=== PATIENT | female | born 1955 | race Caucasian/White ===

== ENCOUNTER → 2020-12-12 | Outpatient (CLI) | payer MEDICARE, OTHER ==
[~2020-12-12] MED LIST: CATHETER FLUSH 10 ML SYR IV PRN; HOLD METFORMIN - RECEIVED CONTRAST 20 ML VIAL IV SCH; IOHEXOL 350 MG/ML 100 ML (OMNIPAQUE 350) VIAL IV ONE; LISI10TA2 PO; NS 100 ML (IVPB) BAG IV ONE
[2020-12-12 10:49] LABS: CREATININE SERUM 0.99 MG/DL (0.60-1.30)
--- NOTE | 2020-12-12 11:41 | Diagnostic Imaging Report ---
EXAMINATION: CT Abdomen Pelvis with and without intravenous contrast. TECHNIQUE: Precontrast acquisitions were acquired through the abdomen and pelvis. Multiple contiguous axial images were obtained through the abdomen and pelvis after the administration of intravenous contrast. All CT scans use one or more of the following dose optimizing techniques: automated exposure control, MA and/or KvP adjustment based on a patient size and exam type, or iterative reconstruction. 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 FINDINGS: Limited views of the lower thorax show mild atelectasis. There is a 2.3 x 1.8 cm hypoattenuating lesion in segment IVb of the liver. There is no biliary ductal dilation. Gallbladder is normal. Pancreas is normal. Spleen is normal. Adrenal glands are normal. Simple cysts are seen in the left kidney. No suspicious renal lesions. There is no hydronephrosis. Urinary bladder is normal. There is endometrial thickening measuring up to 32 mm. Visualized bowel is normal in caliber without obstruction or inflammation. No free fluid or air. There is an 13 mm left inguinal lymph node. Aorta is normal in caliber without aneurysm. There are no suspicious osseus lesions. IMPRESSION: 1. Marked thickening of the endometrium measuring 13 mm concerning for an endometrial neoplasm. 2. Indeterminate liver lesion concerning for metastatic disease. Dictated by: Dictated on workstation # [id number]
== END ==
LOC: RAD 10:12
PROVIDERS: ATTEND Obstetrics & Gynecology
DX: Z01.89 Encounter for other specified special examinations (principal); D39.8 Neoplasm of uncertain behavior of other specified female genital organs
CPT/HCPCS: 36415; 74178; 82565; 84520

== ENCOUNTER → 2020-12-20 | Outpatient (CLI) | payer MEDICARE, OTHER ==
[~2020-12-20] MED LIST changes: -CATHETER FLUSH 10 ML SYR IV PRN; -HOLD METFORMIN - RECEIVED CONTRAST 20 ML VIAL IV SCH; -IOHEXOL 350 MG/ML 100 ML (OMNIPAQUE 350) VIAL IV ONE; -NS 100 ML (IVPB) BAG IV ONE
--- NOTE | 2020-12-20 16:15 | Diagnostic Imaging Report ---
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 TECHNIQUE: Serum blood glucose level at the time of injection is 150 mg/dL. Patient was administered 14.3 mCi F-18 FDG intravenously in the left hand and PET imaging was performed from the top of the skull through mid thighs. Noncontrast CT was also performed for attenuation correction and anatomic correlation. COMPARISON: No prior PET/CT studies available for comparison. Comparison is made with conventional CT abdomen and pelvis study from 12/12/2020. FINDINGS: There is symmetric activity throughout the brain. Soft tissues of the neck are unremarkable. No definite mediastinal or hilar hypermetabolism is identified. No pulmonary parenchymal hypermetabolism is identified. No definite hypermetabolic lesion within the liver is identified to correlate with the abnormality noted on CT, however, liver evaluation with PET can be limiting. There is physiologic activity throughout the liver as well as the remainder of the GI tract and tract. No suspicious hypermetabolic focus in the pelvis is identified apart from some increased activity involving a left inguinal lymph node that measures 23 mm x 16 mm. SUV max is approximately 4. No other hypermetabolic lymph nodes in the pelvis are identified. No suspicious hypermetabolism in the uterus or cervix is identified. IMPRESSION: Unremarkable PET/CT study apart from hypermetabolic lymph node in the left groin. Liver is difficult to evaluate with PET and further evaluation with a liver MRI would be useful to further evaluate lesion within the liver on recent CT study. Dictated by: Dictated on workstation # [id number]
== END ==
LOC: RAD 09:00
PROVIDERS: ATTEND Obstetrics & Gynecology
DX: C76.3 Malignant neoplasm of pelvis (principal); C53.9 Malignant neoplasm of cervix uteri, unspecified
CPT/HCPCS: 78815; A9552

== ENCOUNTER → 2021-01-10 | Outpatient (CLI) | payer MEDICARE, OTHER ==
[~2021-01-10] MED LIST changes: +GADOBUTROL 10 MMOL/10 ML (GADAVIST) VIAL IV ONE
[2021-01-10 09:26] LABS: BILIRUBIN,TOTAL 0.4 MG/DL (0.1-1.0); CALCIUM 9.4 MG/DL (8.5-10.1); CREATININE SERUM 1.04 MG/DL (0.60-1.30); TOTAL PROTEIN 6.9 GM/DL (6.4-8.2)
--- NOTE | 2021-01-10 10:57 | Diagnostic Imaging Report ---
PROCEDURE: MR imaging abdomen with and without contrast. TECHNIQUE: Multiplanar, multisequence MR imaging of the abdomen was performed with and without contrast. INDICATION: Follow-up of liver lesion on CT scan of 12/12/2020. FINDINGS: There is a lesion within liver segment 4B. This shows a decreased signal on T1-weighted images and a rather uniform increased signal on T2-weighted images. This is a slightly lobulated appearing mass measuring approximately 2.2 x 2 cm. Following IV gadolinium there is a somewhat huddled appearing enhancement during the earlier phase images. The portal venous phase shows uniform enhancement. The delayed images at 15 minutes show continued enhancement greater than the surrounding liver. No additional lesions are demonstrated. The gallbladder and bile ducts are normal. The pancreas and spleen are normal. The adrenal glands are not enlarged. IMPRESSION: Solitary lobulated lesion within the anterior portion of the right lobe of the liver segment IVb as described. This does have characteristics consistent with hemangioma. Dictated by: Dictated on workstation # [id number]
== END ==
LOC: RAD 09:30
PROVIDERS: ATTEND Obstetrics & Gynecology
DX: C55 Malignant neoplasm of uterus, part unspecified (principal); D18.09 Hemangioma of other sites
CPT/HCPCS: 36415; 74183; 80053

== ENCOUNTER → 2021-03-20 | Outpatient (CLI) | payer MEDICARE, OTHER ==
[~2021-03-20] MED LIST changes: -GADOBUTROL 10 MMOL/10 ML (GADAVIST) VIAL IV ONE
[2021-03-20 09:03] LABS: ALBUMIN 3.8 GM/DL (3.2-4.5); BILIRUBIN,TOTAL 0.5 MG/DL (0.1-1.0); CALCIUM 10.1 MG/DL (8.5-10.1); CREATININE SERUM 1.04 MG/DL (0.60-1.30); POTASSIUM 4.3 MMOL/L (3.6-5.0); TOTAL PROTEIN 7.5 GM/DL (6.4-8.2)
== END ==
LOC: LAB 08:15
PROVIDERS: ATTEND Obstetrics & Gynecology
DX: C55 Malignant neoplasm of uterus, part unspecified (principal); C54.1 Malignant neoplasm of endometrium

== ENCOUNTER → 2021-03-22 | Outpatient (CLI) | payer MEDICARE, OTHER ==
[2021-03-20 09:03] LABS: ALBUMIN 3.8 GM/DL (3.2-4.5); BILIRUBIN,TOTAL 0.5 MG/DL (0.1-1.0); CALCIUM 10.1 MG/DL (8.5-10.1); CREATININE SERUM 1.04 MG/DL (0.60-1.30); POTASSIUM 4.3 MMOL/L (3.6-5.0); TOTAL PROTEIN 7.5 GM/DL (6.4-8.2)
[~2021-03-22] MED LIST changes: +BARIUM SUSPENSION 2.1% (VANILLA SILQ) 450 ML PO ONE; +CATHETER FLUSH 10 ML SYR IV PRN; +HOLD METFORMIN - RECEIVED CONTRAST 20 ML VIAL IV SCH; +IOHEXOL 350 MG/ML 100 ML (OMNIPAQUE 350) VIAL IV ONE; +NS 100 ML (IVPB) BAG IV ONE
--- NOTE | 2021-03-22 09:15 | Diagnostic Imaging Report ---
EXAMINATION: CT chest, abdomen and pelvis with intravenous contrast. TECHNIQUE: Multiple contiguous axial images were obtained through the chest, abdomen and pelvis after the uneventful administration of intravenous contrast. All CT scans use one or more of the following dose optimizing techniques: automated exposure control, MA and/or KvP adjustment based on patient size and exam type or iterative reconstruction. HISTORY: Uterine cancer. COMPARISON: 12/12/2020 FINDINGS: There is no edema or pneumonia. No pleural effusion. No pneumothorax. No suspicious nodules. Perfusion is consistent with small vessels or small airways disease. There are few tiny juxtapleural lymph nodes in the right apex. There is no axillary or supraclavicular lymphadenopathy. There is no mediastinal lymphadenopathy. Right-sided portacatheter is present. Heart size is normal. There are mild coronary artery calcifications. No pericardial effusion. Aorta is normal in caliber. Unchanged central liver lesion was previously characterized as a hemangioma. No suspicious liver lesions are seen. There is no biliary ductal dilation. Gallbladder is normal. Pancreas is normal. Spleen is normal. Adrenal glands are normal. The kidneys are normal. There is no hydronephrosis. Urinary bladder is normal. There is unchanged endometrial thickening, similar to prior exam. CT appearance of the adnexa are unremarkable. Visualized bowel is normal in caliber without obstruction or inflammation. No free fluid or air. No abdominal or pelvic lymphadenopathy. Profusely seen FDG avid left groin lymph node is now normal in size. Aorta is normal in caliber without aneurysm. There are no suspicious osseous lesions. IMPRESSION: 1. No metastatic disease seen in the chest, abdomen or pelvis. Previously seen FDG avid left groin lymph node is now normal in size. 2. Unchanged endometrial thickening concerning for endometrial cancer. Dictated by: Dictated on workstation # [id number]
== END ==
LOC: RAD 03-20 09:45
PROVIDERS: ATTEND Obstetrics & Gynecology
DX: C54.1 Malignant neoplasm of endometrium (principal); C55 Malignant neoplasm of uterus, part unspecified; R19.00 Intra-abdominal and pelvic swelling, mass and lump, unspecified site
CPT/HCPCS: 36415; 71260; 74177; 80053

== ENCOUNTER → 2021-04-18 | Outpatient (CLI) | payer MEDICARE, OTHER ==
[~2021-04-18] MED LIST changes: -BARIUM SUSPENSION 2.1% (VANILLA SILQ) 450 ML PO ONE; -CATHETER FLUSH 10 ML SYR IV PRN; -HOLD METFORMIN - RECEIVED CONTRAST 20 ML VIAL IV SCH; -IOHEXOL 350 MG/ML 100 ML (OMNIPAQUE 350) VIAL IV ONE; -NS 100 ML (IVPB) BAG IV ONE
== END ==
LOC: LABNPT 06:38
PROVIDERS: ATTEND Obstetrics & Gynecology
DX: C55 Malignant neoplasm of uterus, part unspecified (principal); C54.1 Malignant neoplasm of endometrium; Z20.822 Contact with and (suspected) exposure to COVID-19
CPT/HCPCS: 87635

== ENCOUNTER → 2021-04-18 | Outpatient (CLI) | payer MEDICARE, OTHER ==
[2021-04-18 09:26] LABS: HEMATOCRIT 34 % (35-52); HEMOGLOBIN 11.2 g/dL (11.5-16.0); MEAN CORPUSCULAR HEMOGLOBIN 33 pg (25-34); MEAN CORPUSCULAR HGB CONC 33 g/dL (32-36); MEAN CORPUSCULAR VOLUME 100 fL (80-99); MEAN PLATELET VOLUME 9.9 fL (9.0-12.2); PLATELET COUNT 167 10^3/uL (130-400)
[2021-04-18 09:37] LABS: ALBUMIN 3.9 GM/DL (3.2-4.5)
[2021-04-18 09:38] LABS: POTASSIUM 4.5 MMOL/L (3.6-5.0)
[2021-04-18 09:39] LABS: CALCIUM 9.9 MG/DL (8.5-10.1)
[2021-04-18 09:40] LABS: TOTAL PROTEIN 7.2 GM/DL (6.4-8.2)
[2021-04-18 09:42] LABS: BILIRUBIN,TOTAL 0.4 MG/DL (0.1-1.0)
[2021-04-18 09:44] LABS: CREATININE SERUM 1.08 MG/DL (0.60-1.30)
== END ==
LOC: LAB 08:17
PROVIDERS: ATTEND Obstetrics & Gynecology
DX: C55 Malignant neoplasm of uterus, part unspecified (principal); C54.1 Malignant neoplasm of endometrium
CPT/HCPCS: 36415; 80053; 85027; 85610; 85730

== ENCOUNTER 2021-06-26 08:27 | Outpatient (RCR) | payer MEDICARE, OTHER ==
[2021-05-15 15:38] LABS: BUN/CREATININE RATIO 20; CREATININE SERUM 0.88 MG/DL (0.60-1.30); GFR ESTIMATED > 60
== END 2021-08-13 | disposition home or self-care (01) ==
LOC: ONC 08:27
PROVIDERS: ATTEND Radiology Radiation Oncology
DX: C55 Malignant neoplasm of uterus, part unspecified (principal); I10 Essential (primary) hypertension; E66.01 Morbid (severe) obesity due to excess calories; Z90.89 Acquired absence of other organs; Z92.21 Personal history of antineoplastic chemotherapy
CPT/HCPCS: 82565; 84520; G0463; 77290; 77300; 77301; 77334; 77336; 77338; 77386; 77470; 99205; 99215

== ENCOUNTER 2021-08-17 08:22 | Outpatient (RCR) | payer MEDICARE, OTHER | END 2021-11-15 | disposition home or self-care (01) | LOC: ONC 08:22 | PROVIDERS: ATTEND Radiology Radiation Oncology | DX: C55 Malignant neoplasm of uterus, part unspecified (principal); I10 Essential (primary) hypertension; E66.01 Morbid (severe) obesity due to excess calories; F41.9 Anxiety disorder, unspecified; Z90.89 Acquired absence of other organs; Z92.21 Personal history of antineoplastic chemotherapy | CPT/HCPCS: 99213 ==

== ENCOUNTER → 2022-02-15 | Outpatient (RCR) | payer MEDICARE, OTHER | LOC: ONC 08:38 | PROVIDERS: ATTEND Radiology Radiation Oncology | DX: C55 Malignant neoplasm of uterus, part unspecified (principal); I10 Essential (primary) hypertension; E66.01 Morbid (severe) obesity due to excess calories; F41.9 Anxiety disorder, unspecified; Z90.89 Acquired absence of other organs; Z92.21 Personal history of antineoplastic chemotherapy | CPT/HCPCS: 99213 ==

== ENCOUNTER 2022-08-16 10:19 | Outpatient (RCR) | payer MEDICARE, OTHER | END 2022-08-17 | LOC: ONC 10:19 | PROVIDERS: ATTEND Radiology Radiation Oncology | DX: C55 Malignant neoplasm of uterus, part unspecified (principal); I10 Essential (primary) hypertension; E66.01 Morbid (severe) obesity due to excess calories; F41.9 Anxiety disorder, unspecified; Z90.89 Acquired absence of other organs; Z92.21 Personal history of antineoplastic chemotherapy | CPT/HCPCS: 99213 ==

== ENCOUNTER 2023-10-22 14:35 | Outpatient (CLI) | payer MEDICARE, OTHER ==
[~2023-10-22] VITALS: Ht 160 cm; Wt 91.0 kg
[2023-10-22] MEDS ORDERED: SITA100T12 PO (15:58)
[2023-10-22] MEDS ORDERED: ATOR20TA66 PO (15:58)
[2023-10-22] MEDS ORDERED: METF-397 PO (15:58)
== END 2023-10-22 16:11 | disposition home or self-care (01) ==
LOC: PREOP 14:35
PROVIDERS: ATTEND Specialist
DX: Z01.818 Encounter for other preprocedural examination (principal)

== ENCOUNTER 2023-10-25 05:59 | Day surgery (SDC) | payer MEDICARE, OTHER ==
[~2023-10-25] VITALS: Ht 160 cm; Wt 91.0 kg
[~2023-10-25 05:59] MED LIST changes: +ATOR20TA66 PO; +METF-397 PO; +SITA100T12 PO
[2023-10-25] MEDS ORDERED: POVIDONE IODINE OPHTH SOLN 5% 30 ML OP ONE (06:15)
[2023-10-25] MEDS ORDERED: MOXIFLOXACIN OPHTH SOLN 5 MG/ML 0.5 ML SYRINGE OP ONE (06:15)
[2023-10-25] MEDS ORDERED: TIMOLOL 0.5% (CATARACTS) 0.3 ML BTL OU PRN (06:15)
[2023-10-25] MEDS ORDERED: LIDOCAINE PF 1% 2 ML VIAL IR PRN (06:15)
[2023-10-25] MEDS: TETRACAINE 0.5% OPHTH SOLN 5 ML BTL OU PRN ×4 (06:22→06:56)
[2023-10-25 06:29] VITALS: BP 151/91
[2023-10-25] MEDS: TROPICAMIDE 1% OPH SOLN (MYDRIACYL) 15 ML BTL OP SCH ×3 (06:34→06:55)
[2023-10-25] MEDS: PHENYLEPHRINE 10% OPHTH SOLN 5 ML BTL OU SCH ×3 (06:34→06:55)
[2023-10-25] MEDS ORDERED: CARBACHOL 1.5 ML (MIOSTAT) VIAL IO ONE (06:41)
[2023-10-25] MEDS ORDERED: MIDAZOLAM INJ 2 MG/2 ML VIAL ONE (06:54)
--- NOTE | 2023-10-25 07:02 | Ophthalmologist Pre-Op Note ---
Pre-Operative Progress Note H&P Reviewed The H&P was reviewed, patient examined and no changes noted. Date H&P Reviewed: Oct 25, 2023 Time H&P Reviewed: 07:02 Pre-Op Dx Cataract, Right Eye OREN NUNEZ MD Oct 25, 2023 07:02
--- NOTE | 2023-10-25 07:24 | Ophthalmology Operative Report ---
Cataract removal/placement IOL EOPERATIVE DIAGNOSIS: Cataract Right Eye POSTOPERATIVE DIAGNOSIS: Cataract Right Eye PROCEDURE: Cataract removal and placement of posterior chamber implant, right eye SURGEON: Ramone Nunez ANESTHESIA: Topical with sedation COMPLICATIONS: None ESTIMATED BLOOD LOSS: Minimal DESCRIPTION OF PROCEDURE: After proper informed consent was obtained, the patient, a [id number] female, was taken to the Operating Room and the right eye was anesthetized with tetracaine. The right eye was then prepped and draped in the usual manner. A wire lid speculum was placed. A paracentesis was made at the left hand position. Preservative free lidocaine was injected into the anterior chamber followed by viscoelastic. A clear corneal incision was made in the temporal position. A capsulorrhexis was preformed and the central nuclear and cortical material were removed. The posterior capsule was polished and Humphrey 19.5 CNA0T0 IOL was placed into the capsular bag. The residual viscoelastic was aspirated and balanced saline solution was injected into the anterior chamber. Moxifloxacin was injected into the anterior chamber. The wound was checked and found to be water tight. The patient tolerated the procedure well without complications. RAMONE NUNEZ MD Oct 25, 2023 07:24
[2023-10-25 07:31] VITALS: BP 151/91
--- NOTE | 2023-10-25 12:40 | Anesthesia-General Post-Op ---
MAC Patient Condition Mental Status/LOC: Same as Preop Cardiovascular: Satisfactory Nausea/Vomiting: Absent Respiratory: Satisfactory Pain: Controlled Complications: Absent Post Op Complications Complications None Follow Up Care/Instructions Patient Instructions None needed. Anesthesiology Discharge Order Discharge Order Patient was doing well this morning after the procedure with no complaints, stable vital signs, no apparent adverse anesthesia problems. No complications reported per nursing. SONIA MELCHOR DO Oct 25, 2023 12:40
== END 2023-10-25 07:33 | disposition home or self-care (01) ==
LOC: SDC 05:59
PROVIDERS: ATTEND Specialist
DX: E11.36 Type 2 diabetes mellitus with diabetic cataract (principal); H25.9 Unspecified age-related cataract; Z79.84 Long term (current) use of oral hypoglycemic drugs
CPT/HCPCS: 66984; V2632